=== PATIENT | male | born 1960 | race African-American/Black ===

== ENCOUNTER 2017-12-15 17:31 | Inpatient (IN) | payer MEDICAID ==
[~2017-12-15] VITALS: Ht 185.4 cm; Wt 123.6 kg
[2017-12-15] MEDS ORDERED: SODIUM CHLORIDE 0.9% 1,000ML IVBOLUS ONE (19:30)
[2017-12-15 19:55] LABS: ALANINE AMINOTRANSFERASE 16 U/L (12-78); ALBUMIN 3.4 g/dL (3.4-5.0); ANION GAP 10 mmol/L (5-15); CALCIUM 8.6 mg/dL (8.5-10.1); CHLORIDE 105 mmol/L (98-107); CREATININE 1.57 mg/dL (0.7-1.3)
[2017-12-15 19:56] LABS: SALICYLATE LEVEL < 1.7 mg/dL (2.8-20.0)
[2017-12-15 19:57] LABS: BASOPHILS # (AUTO) 0.06 x10^3/uL (0-0.1); BASOPHILS % (AUTO) 0 % (0-1); EOSINOPHILS # (AUTO) 0.09 x10^3/uL (0-0.4); EOSINOPHILS % (AUTO) 1 % (1-7); LYMPHOCYTES # (AUTO) 1.49 x10^3/uL (1-3.4); LYMPHOCYTES % (AUTO) 11 % (22-44); MD NO; MEAN CORPUSCULAR HEMOGLOBIN 29.7 pg (27.5-34.5); MEAN CORPUSCULAR HGB CONC 33.9 g/dL (33.2-36.2); MEAN CORPUSCULAR VOLUME 87.4 fL (81-97); MEAN PLATELET VOLUME 8.5 fL (7.4-10.4); MONOCYTES # (AUTO) 1.14 x10^3/uL (0.2-0.8); MONOCYTES % (AUTO) 8 % (2-9); NEUTROPHILS # (AUTO) 11.12 x10^3/uL (1.8-6.8); NEUTROPHILS % (AUTO) 80 % (42-75); PLATELET COUNT 338 x10^3/uL (130-400); RED BLOOD COUNT 3.93 x10^6/uL (4.38-5.82); RED CELL DISTRIBUTION WIDTH 17.2 % (9.4-14.8)
[2017-12-15 20:01] LABS: ACETAMINOPHEN < 2 mcg/mL (10-30); ALKALINE PHOSPHATASE 65 U/L (45-117); TOTAL PROTEIN 7.3 g/dL (6.4-8.2); TROPONIN I < 0.015 ng/mL (0.000-0.045)
[2017-12-15] MEDS ORDERED: DEXTROSE 50%, 50ML SYRINGE ONE ×2 (20:04→22:39)
[2017-12-15] MEDS ORDERED: DEXTROSE 50%, 50ML VIAL IVPush ONE ×2 (20:30→23:00)
[2017-12-15] MEDS ORDERED: AMLO5TAB2 PO (22:57)
[2017-12-15] MEDS ORDERED: ASPI325T17 PO (22:58)
[2017-12-15] MEDS ORDERED: D5%-0.45NACL+KCL 30MEQ 1,000 ML IV SCH (23:00)
[2017-12-15] MEDS ORDERED: FURO-92 PO (23:00)
[2017-12-15] MEDS ORDERED: ETAN50DI2 PO (23:00)
[2017-12-15] MEDS ORDERED: GLIM4TAB2 PO (23:01)
[2017-12-15] MEDS ORDERED: HYDR-3343 PO (23:03)
[2017-12-15] MEDS ORDERED: INSU100V13 SUBD (23:04)
[2017-12-15] MEDS ORDERED: INSU100I11 SQ (23:06)
[2017-12-15] MEDS ORDERED: LEVE500T53 PO (23:06)
[2017-12-15] MEDS ORDERED: LOSA100T6 PO (23:07)
[2017-12-15] MEDS ORDERED: OXYC5SOL8 PO (23:09)
[2017-12-15] MEDS ORDERED: PRAV10TA2 PO (23:10)
[2017-12-15] MEDS ORDERED: POTA99TA24 PO (23:10)
[2017-12-15] MEDS ORDERED: PRED5POW3 PO (23:14)
[2017-12-15] MEDS ORDERED: SPIR50TA4 PO (23:15)
[2017-12-15 23:16] LABS: CULTURE INDICATED? NO; MICROSCOPIC NOT IND
[2017-12-15] MEDS ORDERED: [UNRECOGNIZED DRUG - CODE] INH (23:16)
[2017-12-15 23:26] LABS: AMPHETAMINE SCREEN, URINE Negative (Negative); BARBITURATE SCREEN, URINE Negative (Negative); BENZODIAZEPINE SCREEN, URINE Negative (Negative); CANNABINOID SCREEN, URINE Negative (Negative); COCAINE SCREEN, URINE Negative (Negative); METHADONE SCREEN, URINE Negative (Negative); OPIATE SCREEN, URINE Negative (Negative)
[2017-12-15 23:30] VITALS: BP 113/75
[2017-12-15] MEDS ORDERED: DEXTROSE 4 GM TAB.CHEW PO PRN (23:30)
[2017-12-15] MEDS ORDERED: GLUCAGON 1 MG IM PRN (23:30)
[2017-12-15] MEDS ORDERED: DOCUSATE 100 MG CAPSULE PO PRN (23:30)
[2017-12-15] MEDS ORDERED: POLYETHYLENE GLYCOL 17 GM PACKET PO PRN (23:30)
[2017-12-15] MEDS ORDERED: HYDROcodone/APAP 5/325 TABLET PO PRN (23:30)
[2017-12-15] MEDS ORDERED: ONDANSETRON 2MG/ML, 2ML IVPush PRN (23:30)
[2017-12-15] MEDS ORDERED: LABETALOL 5MG/ML, 20ML IVPush PRN (23:30)
[2017-12-15] MEDS ORDERED: ENALAPRILAT 1.25 MG/ML, 2ML IVPush PRN (23:30)
[2017-12-15] MEDS ORDERED: DEXTROSE 50%, 50ML SYRINGE IVPush PRN (23:30)
[2017-12-15] MEDS ORDERED: BISACODYL 10 MG SUPP PR PRN (23:30)
[2017-12-15] MEDS ORDERED: POTASSIUM CHLORIDE 20 MEQ TAB.ER.PRT PO ONE (23:30)
[2017-12-15] MEDS: D5%-0.45% NACL 1,000 ML IV SCH (23:35)
[2017-12-16] MEDS: HEPARIN 5,000 UNITS/ML, 1ML SQ SCH ×4 (00:11→23:41)
[2017-12-16] MEDS: LEVETIRACETAM 500 MG TABLET PO SCH ×3 (00:11→20:07)
[2017-12-16] MEDS: ACETAMINOPHEN 325 MG TABLET PO PRN ×2 (00:11→09:24)
[2017-12-16 04:00] VITALS: BP 110/64
[2017-12-16 04:25] LABS: BASOPHILS # (AUTO) 0.04 x10^3/uL (0-0.1); BASOPHILS % (AUTO) 0 % (0-1); EOSINOPHILS # (AUTO) 0.17 x10^3/uL (0-0.4); EOSINOPHILS % (AUTO) 1 % (1-7); LYMPHOCYTES # (AUTO) 1.65 x10^3/uL (1-3.4); LYMPHOCYTES % (AUTO) 13 % (22-44); MD NO; MEAN CORPUSCULAR HEMOGLOBIN 29.6 pg (27.5-34.5); MEAN CORPUSCULAR HGB CONC 33.6 g/dL (33.2-36.2); MEAN PLATELET VOLUME 8.1 fL (7.4-10.4); MONOCYTES # (AUTO) 0.97 x10^3/uL (0.2-0.8); MONOCYTES % (AUTO) 8 % (2-9); NEUTROPHILS # (AUTO) 9.89 x10^3/uL (1.8-6.8); NEUTROPHILS % (AUTO) 78 % (42-75); PLATELET COUNT 318 x10^3/uL (130-400); RED BLOOD COUNT 3.71 x10^6/uL (4.38-5.82); RED CELL DISTRIBUTION WIDTH 17.6 % (9.4-14.8)
[2017-12-16 04:37] LABS: ALANINE AMINOTRANSFERASE 12 U/L (12-78); ALBUMIN 3.1 g/dL (3.4-5.0); ANION GAP 9 mmol/L (5-15); CALCIUM 8.5 mg/dL (8.5-10.1); CHLORIDE 107 mmol/L (98-107); CREATININE 1.16 mg/dL (0.7-1.3)
[2017-12-16 04:39] LABS: ALKALINE PHOSPHATASE 57 U/L (45-117); BILIRUBIN,TOTAL 0.8 mg/dL (0.2-1.0); TOTAL PROTEIN 6.8 g/dL (6.4-8.2)
[2017-12-16 04:42] LABS: HEMOGLOBIN A1C 5.6 % (4.2-6.3)
[2017-12-16] MEDS ORDERED: POTASSIUM CHLORIDE 20 MEQ TAB.ER.PRT PO ONE (07:30)
[2017-12-16] MEDS: D5%-0.45% NACL 1,000 ML IV SCH (09:19)
[2017-12-16] MEDS: ASPIRIN 325 MG TABLET PO SCH (09:23)
[2017-12-16] MEDS: AMLODIPINE 5 MG TABLET PO SCH (09:23)
[2017-12-16] MEDS: LOSARTAN 50MG TABLET PO SCH (09:23)
[2017-12-16] MEDS: PANTOPRAZOLE 40 MG IV IVPush SCH (09:24)
[2017-12-16] MEDS: SODIUM CHLORIDE FLUSH 10ML SYR IVF SCH ×2 (09:28→20:07)
[2017-12-16] MEDS: INSULIN LISPRO 100 UNITS/ML, PEN SQ-INSULIN SCH ×3 (11:00→20:07)
[2017-12-16 16:59] VITALS: BP 131/92
[2017-12-16 19:43] VITALS: BP 96/65
[2017-12-16] MEDS ORDERED: PRAVASTATIN 20 MG TABLET PO SCH (21:00)
[2017-12-17 02:17] VITALS: BP 111/77
[2017-12-17 06:45] VITALS: BP 107/73
[2017-12-17] MEDS: INSULIN LISPRO 100 UNITS/ML, PEN SQ-INSULIN SCH ×3 (07:00→15:56)
[2017-12-17] MEDS: PANTOPRAZOLE 40 MG IV IVPush SCH (07:30)
[2017-12-17] MEDS: HEPARIN 5,000 UNITS/ML, 1ML SQ SCH ×2 (07:30→15:30)
[2017-12-17] MEDS: AMLODIPINE 5 MG TABLET PO SCH (09:00)
[2017-12-17] MEDS: SODIUM CHLORIDE FLUSH 10ML SYR IVF SCH (09:00)
[2017-12-17] MEDS: ASPIRIN 325 MG TABLET PO SCH (09:23)
[2017-12-17] MEDS: LEVETIRACETAM 500 MG TABLET PO SCH (09:24)
[2017-12-17] MEDS: LOSARTAN 50MG TABLET PO SCH (09:24)
[2017-12-17 12:50] VITALS: BP 92/56
== END 2017-12-17 17:20 | disposition home or self-care (01) | DRG 637 ==
LOC: ED 22:29 → EDIP 22:44 → CCU 23:16 → 3NE 12-16 17:47 → DCLOUNGE 12-17 16:38
PROVIDERS: ADMIT Family Medicine; ATTEND Family Medicine
DX: E11.649 Type 2 diabetes mellitus with hypoglycemia without coma (principal); G93.41 Metabolic encephalopathy; I13.0 Hypertensive heart and chronic kidney disease with heart failure and stage 1 through stage 4 chronic kidney disease, or unspecified chronic kidney disease; T38.3X5A Adverse effect of insulin and oral hypoglycemic [antidiabetic] drugs, initial encounter; G40.909 Epilepsy, unspecified, not intractable, without status epilepticus; D72.829 Elevated white blood cell count, unspecified; B19.20 Unspecified viral hepatitis C without hepatic coma; Z96.651 Presence of right artificial knee joint; E11.22 Type 2 diabetes mellitus with diabetic chronic kidney disease; I50.9 Heart failure, unspecified; M06.9 Rheumatoid arthritis, unspecified; N18.9 Chronic kidney disease, unspecified; Z79.52 Long term (current) use of systemic steroids; Z87.891 Personal history of nicotine dependence; Z89.421 Acquired absence of other right toe(s); Z95.0 Presence of cardiac pacemaker; Z82.3 Family history of stroke; Z79.4 Long term (current) use of insulin; Y92.89 Other specified places as the place of occurrence of the external cause
CPT/HCPCS: 36415; 70450; 71045; 80053; 80307; 80329; 81003; 82140; 82962; 83036; 83735; 84100; 84484; 85025; 87081; 93005; 96361; 96374; J1644; C9113; G0480; J1815; J7030; J7512